=== PATIENT | female | born 1945 | race Caucasian/White ===

== ENCOUNTER → 2016-08-18 | Outpatient (CLI) | payer MEDICARE ==
--- NOTE | 2016-08-18 21:46 | US ---
EXAMINATION TYPE: US venous doppler duplex LE RT DATE OF EXAM: 08/18/2016 2:49 PM COMPARISON: None. TECHNIQUE: Duplex Doppler ultrasound examination of the right lower extremity. FINDINGS: LOWER EXTREMITY VENOUS INSUFFICIENCY SIDE PERFORMED: right TECHNOLOGIST NOTES: 1) Color flow is present and patency is documented in the following vessels. No DVT or SVT is noted . ? EIV ? Common Femoral Vein ? Deep Femoral Vein ? Femoral Vein ? Popliteal Vein ? Proximal Calf Veins ? Greater Saph Vein ? Upper Small Saph Vein 2) There is venous reflux noted at the following venous levels: right GSV, right CFV IMPRESSION: 1. No evidence for DVT within the right lower extremity imaged from the groin to the upper calf. 2. Some venous insufficiency noted involving the right greater saphenous vein and right common femora l vein.
== END | disposition home or self-care (01) ==
LOC: RADUSWWP 14:20
PROVIDERS: ATTEND Family Medicine
DX: I87.2 Venous insufficiency (chronic) (peripheral) (principal)

== ENCOUNTER → 2017-01-07 | Outpatient (CLI) | payer MEDICARE ==
--- NOTE | 2017-01-07 20:12 | WWHP ---
DATE OF DICTATION: 01/07/2017 CHIEF COMPLAINT: The patient is here for her routine gynecologic exam. HISTORY OF PRESENT ILLNESS: This is a 71-year-old G3, P3 with an LMP of 1992. The patient is without gynecologic complaints and denies any postmenopausal bleeding. She states it has probably been about 5 years since her last pelvic exam. PAST MEDICAL HISTORY: 1. Chronic hypertension. 2. Atrial flutter. 3. Overactive bladder. 4. Right ear deafness since childhood. 5. Sleep apnea. 6. She also had skin cancer of the scalp in 2004. MEDICATIONS: 1. Lisinopril 10 mg daily. 2. Metoprolol 25 mg b.i.d. 3. Oxybutynin 5 mg b.i.d. 4. Savaysa 60 mg daily. 5. Numerous supplements, including multivitamin, vitamin C, fish oil supplement, biotin, vitamin B12, and calcium with vitamin D. ALLERGIES: NO KNOWN DRUG ALLERGIES. PAST SURGICAL HISTORY: 1. Tonsillectomy with adenoidectomy at age 8. 2. Tubal ligation at age 35. 3. Skin cancer lesion removed from the scalp in 2004. PAST OB HISTORY: Vaginal delivery x3. ELEMENTARY SCHOOL LIBRARIAN HISTORY: She has been menopausal since approximately 1992. She did use HRT until 2001 and has no history of STDs. SOCIAL HISTORY: She denies tobacco, alcohol and drug use. She is and is not seeing anybody and is not sexually active at this time. 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 FAMILY HISTORY: Mother had an aortic aneurysm and chronic hypertension. Sister had type 2 diabetes. REVIEW OF SYSTEMS: Weight has been stable. She denies respiratory, cardiac or GI problems. She denies maltreatment or falling. : She denies any significant problems with leakage as long as she takes her oxybutynin. PHYSICAL EXAM: Blood pressure 135/64. Height 5 feet 4 inches. Weight 230 pounds. Temperature 97.8. Pulse 60. This is a well-developed, heavyset white female who is alert and oriented x3, in no acute distress. HEENT is within normal limits. NECK: Supple without mass or thyromegaly. CHEST AND LUNGS: Clear to auscultation. HEART: Regular rate and rhythm. Breasts are without mass or discharge. Axillary exam is negative for adenopathy. BACK: Negative for CVA tenderness. ABDOMEN: Mildly obese, soft, nontender, without palpable masses. PELVIC EXAM: External genitalia reveal mild atrophy without lesions. Cervix and vagina reveal mild atrophy without lesions. There is no evidence of prolapse. The cervix is slightly friable upon doing her Pap smear. There is no unusual discharge. There is no cervical motion tenderness. The uterus is mid position, nongravid size and nontender. There are no palpable adnexal masses or tenderness. Bimanual examination is somewhat limited secondary to her size. Rectovaginal exam is negative for mass or tenderness and is negative for occult blood. EXTREMITIES: Nontender. IMPRESSION: A 71-year-old menopausal female with unremarkable gynecologic exam. PLAN: 1. Pap smear was performed. 2. Self breast examination was discussed. 3. Her last mammogram was done on 02/29/16 and this was benign. She will repeat this after one year, and an order slip was given to the patient for this. 4. Osteoporosis prevention was discussed. I have also recommended bone density screening, since it has been more than 10 years since her last one. 5. She does get flu shots in the fall. 6. She will return in one year.
== END | disposition home or self-care (01) ==
LOC: WWCWWP 08:07
PROVIDERS: ATTEND Family Medicine
DX: Z12.4 Encounter for screening for malignant neoplasm of cervix (principal)

== ENCOUNTER → 2017-01-30 | Day surgery (SDC) | payer MEDICARE ==
[2017-01-28 11:00] VITALS: BMI 37.8
[~2017-01-30] MED LIST: ALPRAZolam 0.25 MG TAB PO PRN; ALPRAZolam 0.5 MG TAB PO PRN; ASPIRIN 325 MG TAB PO STA; ATORVASTATIN 80 MG TAB PO STA; B COMPLEX-VIT C-VIT E-ZINC 1 EACH TAB PO SCH; EDOXABAN TOSYLATE 60 MG TABLET PO SCH; HEPARIN SODIUM 1,000 UN/ML (10ML VL) ONE; IOHEXOL 350 MG/ML 125ML BOTTLE INJ ONE; LIDOCAINE 2% INJ 20 MG/ML (20 ML MDV) ONE; LIDOCAINE 2% INJ 20 MG/ML SQ ONE; LISINOPRIL 10 MG TAB PO SCH; METOPROLOL TARTRATE 25 MG TAB PO SCH; MIDAZOLAM 2 MG/2 ML VIAL IV ONE; MIDAZOLAM 2 MG/2 ML VIAL ONE; MULTIVITAMINS, THERA 1 EACH TAB PO SCH; NITROGLYCERIN SL TABS 0.4 MG TAB SUBLINGUAL PRN; OXYBUTYNIN XL 5 MG TAB.ER.24 PO SCH; RX INFO: IV CONTRAST WAS GIVEN 1 EACH MISC MISCELLANE PRN; SODIUM CHLORIDE 0.9% 1,000 ML IV SCH; SODIUM CHLORIDE 0.9% 1,000 ML in EMPTY BAG 1 BAG IV ONE; VERAPAMIL 2.5 MG/ML 2 ML AMP ONE; VERAPAMIL SYRINGE (5 MG/10 ML) INTRAARTER ONE; diphenhydrAMINE 50 MG/ML 1 ML VIAL IVP ONE; diphenhydrAMINE 50 MG/ML 1 ML VIAL ONE; fentaNYL (PF) 50 MCG/ML 2 ML AMP IV ONE; fentaNYL (PF) 50 MCG/ML 2 ML AMP ONE
[2017-01-30 06:49] VITALS: RESP 18
[2017-01-30 07:09] LABS: Basophils % (A) 0 %; CH 32.8; CHCM 35.3; Eosinophils # (A) 0.1 k/uL (0-0.7); Eosinophils % (A) 2 %; HCT 36.5 % (34.0-46.0); HDW 2.38; HGB 13.2 gm/dL (11.4-16.0); Luc # (Auto) 0.22; Luc % (Auto) 4; Lymphocytes # (A) 2.1 k/uL (1.0-4.8); Lymphocytes % (A) 39 %; MCH 33.7 pg (25.0-35.0); MCHC 36.2 g/dL (31.0-37.0); MCV 93.1 fL (80.0-100.0); Mean Platelet Volume 7.1; Monocytes # (A) 0.4 k/uL (0-1.0); Monocytes % (A) 7 %; Neutrophils # (A) 2.5 k/uL (1.3-7.7); Neutrophils % (A) 47 %; RBC 3.92 m/uL (3.80-5.40); RDW 12.7 % (11.5-15.5); WBC 5.3 k/uL (3.8-10.6); WBC (Perox) 5.19
[2017-01-30 07:25] LABS: Anion Gap 9 mmol/L; Blood Urea Nitrogen 31 mg/dL (7-17); Calcium 9.3 mg/dL (8.4-10.2); Carbon Dioxide 27 mmol/L (22-30); Chloride 106 mmol/L (98-107); Glucose 91 mg/dL (74-99); Non-African American GFR(MDRD) >60 (>60 ml/min/1.73 sqM); Potassium 4.3 mmol/L (3.5-5.1); Sodium 142 mmol/L (137-145)
[2017-01-30 08:27] VITALS: TEMP 98
[2017-01-30 13:14] VITALS: BP 115/65; PULSE 66
--- NOTE | 2017-01-30 15:39 | CC ---
Mrs. Moe is a 71 year old female with history of hypertension, who recently was noted to be in atrial flutter. Underwent myocardial perfusion imaging that revealed partial reversible inferior lateral wall defect. In view of that, recommendation was made regarding cardiac catheterization. The procedure as well as risks and complications were discussed with the patient who is in full understanding and agreement. The patient was brought to the screedman/laborer in a fasting semi-sedated state. After receiving Fentanyl and Benadryl, achieving moderate conscious sedated state, using Xylocaine anesthesia and Seldinger technique, A 6 Irish introducer was introduced into the right radial artery . Selective right and left coronary artery was performed using 5 Irish 3.5 Bend, right and left Guille catheter. Multiple views of the right coronary artery including hemiaxial views were obtained. Following that, a 5 Irish tight pigtail catheter was introduced into the left ventricle and a 30 degree HEART view of the left ventricle was obtained. Following that, catheter and sheath were removed. Hemostasis was obtained with deployment of a TR band. There were no immediate complications. The patient was returned to her room in stable condition. Of note, the patient received 5000 units of intravenous heparin as well as intraarterial verapamil. FINDINGS: LEFT MAIN: This is a short size vessel bifurcating into left circumflex, left anterior descending artery. Left main coronary artery is without significant obstructive disease. LEFT ANTERIOR DESCENDING ARTERY: This is a large size vessel reaching towards the apex with a wrap around the apex segment giving rise to one diagonal branch. The left anterior descending artery as well as branches have no evidence of obstructive coronary artery disease. LEFT CIRCUMFLEX: This is a dominant vessel, large in caliber, giving rise to a proximal obtuse marginal branch. Distally bifurcates into PDA and posterolateral segment and branches. The left circumflex as well as branches have no evidence of obstructive coronary artery disease. RIGHT CORONARY ARTERY: This is a small size vessel nondominant that has no evidence of high grade stenosis. LEFT VENTRICULOGRAM: Left ventriculogram was performed in 30 degree HEART view and revealed normal left ventricular size and systolic function. Ejection fraction 60%. There was no significant mitral regurgitation. HEMODYNAMICS: There was no gradient across the aortic valve. The left ventricular end diastolic pressure was 20 mmHg. CONCLUSION: 1. Normal coronary arteries. 2. Normal left ventricular size and systolic function. 3. Dominant left system. RECOMMENDATIONS: In view of findings and anatomy, I have recommended continued medical therapy with the aggressive coronary risks factor modifications that have been initiated. Those findings and recommendations were discussed with the patient and her family who are in full understanding and agreement. JAYASHREE
--- NOTE | 2017-01-30 15:43 | MISC ---
Dear Dr. Craft: I had the pleasure of performing cardiac catheterization on Mrs. Moe at [facility] on the january and a full copy of procedure note will be forwarded to you. In brief, she was found to have no evidence of obstructive coronary artery disease with normal left ventricular size and systolic function. Based on those findings, I have recommended continued medical therapy with aggressive coronary risk factor modifications that you have initiated. Thank you again for allowing me to participate in his care. Please feel free to call for any questions. Sincerely yours, JAYASHREE
== END | disposition home or self-care (01) ==
LOC: CATHCVL 06:10
PROVIDERS: ATTEND Internal Medicine Interventional Cardiology
DX: I48.3 Typical atrial flutter (principal); I10 Essential (primary) hypertension; R94.39 Abnormal result of other cardiovascular function study; G47.33 Obstructive sleep apnea (adult) (pediatric); Z99.89 Dependence on other enabling machines and devices; Z79.02 Long term (current) use of antithrombotics/antiplatelets; Z79.899 Other long term (current) drug therapy
CPT/HCPCS: 99152; 99153; 93458; 80048; 85025; C1769 ×2; C1894; J2001; J2250; J1200; J3010; J1644; Q9967

== ENCOUNTER → 2019-01-25 | Outpatient (CLI) | payer MEDICARE ==
[2019-01-25 11:10] LABS: Appearance,Urine Clear (Clear); Bilirubin,Urine Negative (Negative); Blood,Urine Moderate (Negative); Color,Urine Light Yellow; Glucose,Urine (UA) Negative (Negative); Ketones,Urine Negative (Negative); Leukocyte Esterase,Urine Negative (Negative); Mucus,Urine Rare /hpf; Nitrite,Urine Negative (Negative); PH, Urine 6.5 (5.0-8.0); Protein,Urine Negative (Negative); RBC,Urine 10 /hpf (0-5); Specific Gravity,Urine 1.004 (1.001-1.035); Squamous Epithelial Cell,Urine <1 /hpf (0-4); Urobilinogen,Urine <2.0 mg/dL (<2.0); WBC,Urine <1 /hpf (0-5)
[2019-01-25 11:12] LABS: HCT 37.6 % (34.0-46.0); HGB 12.6 gm/dL (11.4-16.0); MCH 32.5 pg (25.0-35.0); MCHC 33.5 g/dL (31.0-37.0); Mean Platelet Volume 6.6; Platelet Count 209 k/uL (150-450); RBC 3.87 m/uL (3.80-5.40); RDW 12.7 % (11.5-15.5); WBC 4.8 k/uL (3.8-10.6)
[2019-01-25 17:50] LABS: Albumin 4.1 g/dL (3.80-4.90); Albumin/Globulin Ratio 2.16 (1.60-3.17); Anion Gap 7.3 mmol/L (4.00-12.00); BUN/Creat Ratio 28.75 Ratio (12.00-20.00); Calcium 9.6 mg/dL (8.7-10.3); Carbon Dioxide 30.7 mmol/L (21.6-31.8); Globulin 1.9 g/dL (1.6-3.3); LDL Cholesterol,Calculated 99.4 mg/dL (0.0-131.0); Potassium 4.7 mmol/L (3.5-5.5); Total Bilirubin 0.7 mg/dL (0.2-1.2); VLDL Calculation 20.6 mg/dL (5.00-40.00)
[2019-01-25 18:27] LABS: Vitamin D 25 Hydroxy 45.7 ng/mL (30.0-100.0)
[2019-01-25 19:24] LABS: Hepatitis C IgG Antibody Non-Reactive (Non-Reactive)
[2019-01-25 20:31] LABS: Hemoglobin A1C 5.9 % (4.0-6.0)
== END | disposition home or self-care (01) ==
LOC: LABWHC1 10:22
PROVIDERS: ATTEND Family Medicine
DX: Z00.01 Encounter for general adult medical examination with abnormal findings (principal); R31.1 Benign essential microscopic hematuria; E66.9 Obesity, unspecified; I10 Essential (primary) hypertension; R73.09 Other abnormal glucose
CPT/HCPCS: 36415; 80053; 80061; 81001; 82306; 83036; 84439; 84443; 85027; 86803

== ENCOUNTER → 2019-08-08 | Outpatient (CLI) | payer MEDICARE ==
[2019-08-08 22:18] LABS: Anion Gap 11.7 mmol/L (4.00-12.00); BUN/Creat Ratio 31.25 Ratio (12.00-20.00); Calcium 9.9 mg/dL (8.7-10.3); Carbon Dioxide 28.3 mmol/L (21.6-31.8); Non-African American GFR(CKD) 74.2 (60.0-200.0); Potassium 4.1 mmol/L (3.5-5.5)
== END | disposition home or self-care (01) ==
LOC: LABWHC1 15:12
PROVIDERS: ATTEND Family Medicine
DX: I10 Essential (primary) hypertension (principal)
CPT/HCPCS: 36415; 80048

== ENCOUNTER 2024-06-10 06:02 | Day surgery (SDC) | payer MEDICARE ==
[~2024-06-10 06:02] MED LIST changes: -ALPRAZolam 0.25 MG TAB PO PRN; -ALPRAZolam 0.5 MG TAB PO PRN; -ASPIRIN 325 MG TAB PO STA; -ATORVASTATIN 80 MG TAB PO STA; -B COMPLEX-VIT C-VIT E-ZINC 1 EACH TAB PO SCH; -EDOXABAN TOSYLATE 60 MG TABLET PO SCH; -HEPARIN SODIUM 1,000 UN/ML (10ML VL) ONE; -IOHEXOL 350 MG/ML 125ML BOTTLE INJ ONE; -LIDOCAINE 2% INJ 20 MG/ML (20 ML MDV) ONE; -LIDOCAINE 2% INJ 20 MG/ML SQ ONE; -LISINOPRIL 10 MG TAB PO SCH; -METOPROLOL TARTRATE 25 MG TAB PO SCH; -MIDAZOLAM 2 MG/2 ML VIAL IV ONE; -MIDAZOLAM 2 MG/2 ML VIAL ONE; -MULTIVITAMINS, THERA 1 EACH TAB PO SCH; -NITROGLYCERIN SL TABS 0.4 MG TAB SUBLINGUAL PRN; -OXYBUTYNIN XL 5 MG TAB.ER.24 PO SCH; -RX INFO: IV CONTRAST WAS GIVEN 1 EACH MISC MISCELLANE PRN; -SODIUM CHLORIDE 0.9% 1,000 ML in EMPTY BAG 1 BAG IV ONE; -VERAPAMIL 2.5 MG/ML 2 ML AMP ONE; -VERAPAMIL SYRINGE (5 MG/10 ML) INTRAARTER ONE; -diphenhydrAMINE 50 MG/ML 1 ML VIAL IVP ONE; -diphenhydrAMINE 50 MG/ML 1 ML VIAL ONE; -fentaNYL (PF) 50 MCG/ML 2 ML AMP IV ONE; -fentaNYL (PF) 50 MCG/ML 2 ML AMP ONE
[2024-06-10 06:34] VITALS: TEMP 97.4
[2024-06-10] MEDS ORDERED: METOPROLOL TARTRATE 25 MG TAB PO STA (06:36)
[2024-06-10] MEDS: IV FLUID CONTINUATION 1,000 ML IV ONE (06:52)
[2024-06-10] MEDS ORDERED: SODIUM CHLORIDE 0.9% 500 ML 500 ML IV SCH (07:00)
[2024-06-10] MEDS ORDERED: LIDOCAINE 1% INJ 10MG/ML (20 ML MDV) ONE (07:15)
[2024-06-10] MEDS ORDERED: PROPOFOL 10 MG/ML 20 ML VIAL IV ONE (07:15)
[2024-06-10] MEDS: BENZOCAINE SPRAY 1 EACH MM ONE (07:17)
[2024-06-10 07:29] LABS: African American GFR (CKD) >90 (>60 ml/min/1.73 sqM); Anion Gap 4 mmol/L; Blood Urea Nitrogen 25 mg/dL (7-17); Calcium 9.4 mg/dL (8.4-10.2); Carbon Dioxide 30 mmol/L (22-30); Chloride 106 mmol/L (98-107); Glucose 95 mg/dL (74-99); Non-African American GFR(CKD) 82 (>60 ml/min/1.73 sqM); Potassium 4.1 mmol/L (3.5-5.1); Sodium 140 mmol/L (137-145)
--- NOTE | 2024-06-10 07:37 | P.PCN ---
Date of Procedure: 06/10/24 Description of Procedure: Indication: Atrial flutter Procedure Description: After explaining the procedure to the patient, it's risk and complications, blood pressure, heart rate and O2 saturation were monitored. The throat was sprayed with Cetacaine. Patient received sedation per anesthesia department. The probe was introduced into the esophagus without difficulty. Images were obtained. Following that, the probe was removed. There was no immediate complication. Findings: Left atrial size is normal, left atrial appendage is normal. Left ventricular size and systolic function are normal. The aortic valve appears to be normal. Mild thickening of the mitral valve leaflets was noted, tricuspid valve and pulmonic valve are normal. Descending thoracic aorta revealed mild atherosclerotic changes. No pericardial effusion was noted. Contrast bubble study revealed no shunting across the interatrial septum. Doppler: Pulse wave and color Doppler were obtained, and revealed mild mitral and tricuspid regurgitation with trace pulmonic regurgitation. There was no shunting by color Doppler study. Conclusion: 1. Normal appearance of the left atrial appendage 2. Normal ventricle size and systolic function 3. Mild mitral and tricuspid regurgitation 4. No shunting across the interatrial septum 5. No pericardial effusion Cardioversion: After obtaining MAHI and sedated state a synchronized biphasic cardioversion using 200 j was unsuccessful in restoring sinus mechanism, a repeat cardiover pearl using 200 J was successful in restoring sinus mechanism. There was no immediate complication.
[2024-06-10 08:59] VITALS: BP 111/68; PULSE 68; RESP 16
[2024-06-10] MEDS ORDERED: METOPROLOL TARTRATE 25 MG TAB PO SCH (09:00)
[2024-06-10] MEDS ORDERED: RIVAROXABAN 20 MG TAB PO SCH (21:00)
[2024-06-10] MEDS ORDERED: lisinopriL 10 MG TAB PO SCH (21:00)
== END 2024-06-10 09:16 | disposition home or self-care (01) ==
LOC: OR 06:02
PROVIDERS: ATTEND Internal Medicine Interventional Cardiology
DX: I48.3 Typical atrial flutter (principal); I08.1 Rheumatic disorders of both mitral and tricuspid valves; I10 Essential (primary) hypertension; R06.09 Other forms of dyspnea; G47.33 Obstructive sleep apnea (adult) (pediatric); Z79.01 Long term (current) use of anticoagulants; Z79.899 Other long term (current) drug therapy
CPT/HCPCS: 93312; 93320; 93325; 92960; 80048; J2003; J2704